=== PATIENT | female | born 1970 | race Caucasian/White ===

== ENCOUNTER 2018-05-03 14:40 | Outpatient (CLI) | payer BC ==
--- NOTE | 2018-05-03 18:18 | MMO ---
BILATERAL SCREENING MAMMOGRAM: Date: 05/03/18 HISTORY: 48-year-old female. Routine screening mammography. COMPARISON: None. Baseline mammogram. TECHNIQUE: CC and MLO views of both breasts are submitted for interpretation. This patient's mammogram was reviewed with the assistance of computer-aided detection. FINDINGS: The breasts are composed of scattered fibroglandular tissue. In the left breast, no suspicious dominant mass, architectural distortion, or suspicious calcificatio n. There appears to be increased asymmetric density in the upper outer right breast. IMPRESSION: BIRADS 0: Incomplete: Need Additional Imaging Evaluation and/or Prior Mammograms for Comparison RECOMMENDATION: Spot view of the right breast in the CC and MLO projection, along with a mediolateral view. Ultrasoun d should be performed if asymmetry persists. The facility will notify patient of need for additional imaging services. POS: [facility]
== END 2018-05-03 14:41 | disposition home or self-care (01) ==
LOC: SCSMAMMO 14:40
DX: Z12.31 Encounter for screening mammogram for malignant neoplasm of breast (principal)
CPT/HCPCS: 77067

== ENCOUNTER 2018-05-08 12:45 | Outpatient (CLI) | payer BC | END 2018-05-08 12:46 | disposition home or self-care (01) | LOC: BICMAMMO 12:45 | PROVIDERS: ATTEND Surgery | DX: R92.2 Inconclusive mammogram (principal); N64.89 Other specified disorders of breast | CPT/HCPCS: G0279 ==